=== PATIENT | male | born 1995 | race Caucasian/White ===

== ENCOUNTER 2018-07-03 14:33 | Inpatient (IN) | payer BC, OTHER ==
[~2018-07-03] VITALS: Ht 167.6 cm; Wt 80.2 kg
[2018-07-03] MEDS ORDERED: EFFE75CA2 PO (14:45)
[2018-07-03] MEDS ORDERED: VENL75CA47 PO (14:45)
[2018-07-03] MEDS ORDERED: RANI150T PO (14:45)
[2018-07-03] MEDS ORDERED: ADDE1TAB14 PO (14:45)
[2018-07-03 15:24] LABS: HEMATOCRIT 46.8 % (42.0-52.0); MEAN CORPUSCULAR HEMOGLOBIN 27.3 pg (27.0-33.0); MEAN CORPUSCULAR HGB CONC 32.1 g/dl (32.0-36.5); MEAN CORPUSCULAR VOLUME 85.1 fl (80.0-96.0); PLATELET COUNT, AUTOMATED 343 10^3/uL (150-450); WHITE BLOOD COUNT 9.3 10^3/uL (4.0-10.0)
[2018-07-03 15:40] LABS: AMPHETAMINES LEVEL URINE POSITIVE (NEGATIVE); BARBITURATES URINE NEGATIVE (NEGATIVE); BENZODIAZEPINES URINE NEGATIVE (NEGATIVE); CANNABINOIDS URINE POSITIVE (NEGATIVE); COCAINE METABOLITE URINE NEGATIVE (NEGATIVE); METHADONE URINE NEGATIVE (NEGATIVE); OPIATES URINE NEGATIVE (NEGATIVE); PHENCYCLIDINE URINE NEGATIVE (NEGATIVE)
[2018-07-03 16:17] LABS: ACETAMINOPHEN LEVEL < 2.0 UG/ML (10.0-30.0); ALBUMIN 3.7 GM/DL (3.2-5.2); ALT/SGPT 21 U/L (12-78); BILIRUBIN,DIRECT 0.1 MG/DL (0.0-0.2); BILIRUBIN,TOTAL 0.3 MG/DL (0.2-1.0); BLOOD UREA NITROGEN 11 MG/DL (7-18); CALCIUM LEVEL 8.1 MG/DL (8.5-10.1); CARBON DIOXIDE LEVEL 25 MEQ/L (21-32); CHLORIDE LEVEL 110 MEQ/L (98-107); CREATININE FOR GFR 0.86 MG/DL (0.70-1.30); ETHYL ALCOHOL (ETHANOL) 0.121 % (0.000-0.010); GLOMERULAR FILTRATION RATE > 60.0 (>60); GLUCOSE, FASTING 52 MG/DL (70-100); POTASSIUM SERUM 4.2 MEQ/L (3.5-5.1); SALICYLATE LEVEL 3.7 MG/DL (5.0-30.0); SODIUM LEVEL 144 MEQ/L (136-145); TOTAL PROTEIN 7.1 GM/DL (6.4-8.2)
[2018-07-03] MEDS ORDERED: SILD50TA PO (17:02)
[2018-07-03] MEDS ORDERED: AMPH1TAB2 PO (17:02)
[2018-07-03] MEDS ORDERED: LORazepam 2 MG TAB PO PRN (19:00)
[2018-07-03] MEDS ORDERED: ACETAMINOPHEN TAB 650MG DOSE (2X325MG) PO PRN (19:00)
[2018-07-03] MEDS ORDERED: MAALOX 30 ML SUSP *UDC PO PRN (19:00)
[2018-07-03] MEDS ORDERED: MOM 30ML SUSPENSION UDC PO PRN (19:00)
[2018-07-03] MEDS: THIAMINE 100 MG TAB PO SCH (19:44)
[2018-07-03 21:01] VITALS: BP 140/88
[2018-07-03] MEDS: traZODone 50 MG TAB PO PRN (22:19)
[2018-07-04 06:00] VITALS: BP 150/89
[2018-07-04] MEDS: MULTIVITAMINS/MINERALS THERAP 1 TAB PO SCH (09:22)
[2018-07-04] MEDS: NICOTINE 21MG/24HR 1 EA TRANSDERMAL TD SCH (09:22)
[2018-07-04] MEDS: FOLIC ACID 1 MG TAB PO SCH (09:22)
[2018-07-04] MEDS: THIAMINE 100 MG TAB PO SCH ×2 (09:22→21:07)
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
[2018-07-04] MEDS ORDERED: hydrOXYzine 50 MG TAB PO PRN (16:00)
[2018-07-04] MEDS: SERTRALINE HCL 50 MG TAB PO SCH (16:16)
[2018-07-04 16:56] VITALS: BP 133/88
[2018-07-04 18:08] VITALS: BP 133/88
[2018-07-04] MEDS: traZODone 50 MG TAB PO PRN (21:07)
[2018-07-04 22:00] VITALS: BP 133/88
[2018-07-05 06:30] VITALS: BP 140/84
[2018-07-05] MEDS ORDERED: VENLAFAXINE 37.5 MG TAB PO SCH (09:00)
[2018-07-05] MEDS: MULTIVITAMINS/MINERALS THERAP 1 TAB PO SCH (09:12)
[2018-07-05] MEDS: THIAMINE 100 MG TAB PO SCH ×2 (09:13→20:56)
[2018-07-05] MEDS: NICOTINE 21MG/24HR 1 EA TRANSDERMAL TD SCH (09:13)
[2018-07-05] MEDS: SERTRALINE HCL 50 MG TAB PO SCH (09:13)
[2018-07-05] MEDS: FOLIC ACID 1 MG TAB PO SCH (09:13)
--- NOTE | 2018-07-05 11:05 | MHIPNPDOC ---
[facility] Progress Note Progress Note DATE OF SERVICE: 07/05/18 Chief Complaint Patient presented himself to the ED for increasing depression History of Present Illness HISTORY OF THE PRESENT ILLNESS: Patient is a 23 -year-old , male, who according to ED report: "Patient arrived with police on a volunbtary basis. He has been noted to be crying, at times even sobbing uncontrollably, at times since arrival. During interview he avoided eye contact, was guarded & irritable. He described being distraught this morning due to the loss of his former s.o. & their 2 y/o daughter, as she terminated their relationship 2 weeks ago. He says that there is now an ongoing Family Court case to determine custody. Patient states that he has lost everything during this last 2 weeks & is now living back in his parents' home. He reports insomnia, hopelessness, poor appetite, depresse mood, frequent crying episodes & difficulty concentrating enough to work. Patient denied SI/HI on direct query, although his family suggetsed otherwise.Patient's father phoned ED with grievous concerns. He stated that patient has been struggling since the breakup, and today was found face down in the snow, sobbing. Father states that when he tried to intervene, patient became combative. He reportedly stated intent to go out into the hinds, while repeatedly begging his father to kill him in order to end his pain. Father expressed belief that patient has reached a point where he will indeed harm himself." VITAL SIGNS: See below. NEW TEST RESULTS: See below CURRENT MEDICATIONS: See below. MENTAL STATUS EXAMINATION: Patient is a 23-year old male, who is alert, cooperative, dressed in hospital clothes. Speech: Is normal rate, tone and volume. Spontaneous and fluent. Less circumstantial than yesterday Language skills are good Thought processes including: linear, coherent Thought content: depressive thoughts, cognitive distortions Abstract reasoning, and computation: good Description of associations: good Description of abnormal or psychotic thoughts: . Judgment: fair Insight: poor Orientation: x 3 Recent and remote memory: intact Attention span and concentration: good. Language: good. Fund of knowledge: average. Mood: anxious/depressed. Affect: congruent with mood. DIAGNOSES: 1. Major Depressive disorder, recurrent versus Bipolar disorder, unspecified 2. ZEENAT 3. ADHD by history ASSESSMENT: He says that he has been doing some journaling and that has helped. He says that now that he has his own clothes he will have a shower. He says that he feels a little bit more hopeful, his issue is sorting out his meds, he doesn't think he has been going to the right Doctors. Tried to explore some of his problems, his sense of being rejected, dressing in an extravagant way. He mentions that when he moved to the city he would work on and off a [employer], it granted him a lot of free partying. He never felt as if he was a woman but he felt it was easier for him to relate to other people when he was dressed as someone different than himself. He also did it to retaliate towards men that made fun of him. Once he became more confident as a man, he started to feel attracted towards women. discussed the possibility of a bipolar disorder, because he felt overtly confident, very energetic, he dressed in a different way before he took Adderall. He is agreable to take Abilify 2 mgs PO BID MANAGEMENT PLAN: Sertraline 50 mgs PO QAM Abilify 2 mgs PO BID Trazodone 50 mgs PO QHSP for insomnia Atarax 50 mgs PO Q4HP for anxiety/agitation TIME SPENT: 20 minutes. Vital Signs Vital Signs Date Time Temp Pulse Resp B/P (MAP) Pulse Ox O2 Delivery O2 Flow Rate FiO2 07/05/18 06:30 74 140/84 07/05/18 06:30 98.5 18 07/03/18 20:08 99 Room Air Current Medications Current Medications Acetaminophen (Tylenol Tab) 650 mg Q6HP PRN PO HEADACHE or DISCOMFORT; Start 07/03/18 at 19:00 Al Hydrox/Mg Hydrox/Simethicone (Mylanta) 30 ml Q4HP PRN PO HEARTBURN/INDIGESTION; Start 07/03/18 at 19:00 Folic Acid (Folic Acid) 1 mg DAILY PO Last administered on 07/05/18at 09:13; Start 07/04/18 at 09:00 Home Med (Med Rec Complete!) ASDIRECTED XX ; Start 07/03/18 at 17:15; Stop 07/03/18 at 17:15; Status DC Hydroxyzine HCl (Atarax) 50 mg Q4HP PRN PO ANXIETY/AGITATION Last administered on 07/04/18 16:16; Start 07/04/18 at 16:00 Lorazepam (Ativan) 2 mg ASDIRECTED PRN PO SEE PROTOCOL; Start 07/03/18 at 19:00 Magnesium Hydroxide (Milk Of Magnesia) 30 ml DAILYPRN PRN PO CONSTIPATION; Start 07/03/18 at 19:00 Multivitamins (Theragram-M) 1 tab DAILY PO Last administered on 07/05/18 09:12; Start 07/04/18 at 09:00 Nicotine (Nicoderm Cq 21mg) 1 patch DAILY TD Last administered on 07/05/18 09:13; Start 07/04/18 at 09:00 Sertraline HCl (Zoloft) 50 mg DAILY PO Last administered on 07/05/18 09:13; Start 07/04/18 at 09:00 Thiamine HCl (Thiamine HCl) 100 mg BID PO Last administered on 07/05/18 09:13; Start 07/03/18 at 19:00; Stop 07/06/18 at 18:59 Trazodone HCl (Desyrel) 50 mg QHSP PRN PO INSOMNIA Last administered on 07/04/18 21:07; Start 07/03/18 at 19:00 Venlafaxine HCl (Effexor) 37.5 mg DAILY PO ; Start 07/05/18 at 09:00; Status UNV Allergies Coded Allergies: Tetracycline (Verified Allergy, Unknown, 08/04/12) MONICA LAIRD MD Jul 05, 2018 11:04
[2018-07-05 18:05] VITALS: BP 138/88
[2018-07-05] MEDS: ARIPiprazole 2 MG TAB PO SCH (20:56)
[2018-07-05] MEDS: traZODone 50 MG TAB PO PRN (20:56)
[2018-07-05 22:00] VITALS: BP 138/88
[2018-07-06 06:00] VITALS: BP 135/82
[2018-07-06] MEDS: ARIPiprazole 2 MG TAB PO SCH ×2 (08:57→21:54)
[2018-07-06] MEDS: MULTIVITAMINS/MINERALS THERAP 1 TAB PO SCH (08:57)
[2018-07-06] MEDS: NICOTINE 21MG/24HR 1 EA TRANSDERMAL TD SCH (08:57)
[2018-07-06] MEDS: SERTRALINE HCL 50 MG TAB PO SCH (08:57)
[2018-07-06] MEDS: FOLIC ACID 1 MG TAB PO SCH (08:57)
[2018-07-06] MEDS: THIAMINE 100 MG TAB PO SCH (08:57)
--- NOTE | 2018-07-06 11:06 | MHIPNPDOC ---
[facility] Progress Note Progress Note DATE OF SERVICE: 07/06/18 HISTORY: Per Dr. Gonzalez: "Patient is a 23 -year-old , male, who according to ED report: "Patient arrived with police on a voluntary basis. He has been noted to be crying, at times even sobbing uncontrollably, at times since arrival. During interview he avoided eye contact, was guarded & irritable. He described being distraught this morning due to the loss of his former s.o. & their 2 y/o daughter, as she terminated their relationship 2 weeks ago. He says that there is now an ongoing Family Court case to determine custody. Patient states that he has lost everything during this last 2 weeks & is now living back in his parents' home. He reports insomnia, hopelessness, poor appetite, depressed mood, frequent crying episodes & difficulty concentrating enough to work. Patient denied SI/HI on direct query, although his family suggested otherwise.Patient's father phoned ED with grievous concerns. He stated that patient has been struggling since the breakup, and today was found face down in the snow, sobbing. Father states that when he tried to intervene, patient became combative. He reportedly stated intent to go out into the hinds, while repeatedly begging his father to kill him in order to end his pain. Father expressed belief that patient has reached a point where he will indeed harm himself." VITAL SIGNS: See below. NEW TEST RESULTS: See below CURRENT MEDICATIONS: See below. MENTAL STATUS EXAMINATION: Patient is a 23-year old male, who is alert, cooperative, dressed in own clothes. Speech: Is normal rate, tone and volume. Spontaneous and fluent. No longer circumstantial. Language skills are good Thought processes including: linear, coherent Thought content: depressive thoughts, cognitive distortions Abstract reasoning, and computation: good Description of associations: good Description of abnormal or psychotic thoughts:denies Judgment: fair Insight: fair Orientation: x 3 Recent and remote memory: intact Attention span and concentration: good. Language: good. Fund of knowledge: average. Mood: "better". Affect: less depressed and anxious DIAGNOSES: 1. Major Depressive disorder, recurrent versus Bipolar disorder, unspecified 2. ZEENAT 3. ADHD by history ASSESSMENT: States he's feeling better today although didn't sleep due to a loud agitation from another pt. States he's tolerating his medication and waiting to feel benefits from them. States he's attending groups which he's finding very helpful. Per Dr. Gonzalez yesterday "Tried to explore some of his problems, his sense of being rejected, dressing in an extravagant way. He mentions that when he moved to the city he would work on and off a [employer], it granted him a lot of free partying. He never felt as if he was a woman but he felt it was easier for him to relate to other people when he was dressed as someone different than himself. He also did it to retaliate towards men that made fun of him. Once he became more confident as a man, he started to feel attracted towards women." He denies SI/HI, hallucinations, delusions. Feels safe here. MANAGEMENT PLAN: Sertraline 50 mgs PO QAM Abilify 2 mgs PO BID Trazodone 50 mgs PO QHSP for insomnia Atarax 50 mgs PO Q4HP for anxiety/agitation TIME SPENT: 30 minutes. Vital Signs Vital Signs Date Time Temp Pulse Resp B/P (MAP) Pulse Ox O2 Delivery O2 Flow Rate FiO2 07/06/18 06:00 98.4 56 16 135/82 (99) 99 07/03/18 20:08 Room Air Current Medications Current Medications Acetaminophen (Tylenol Tab) 650 mg Q6HP PRN PO HEADACHE or DISCOMFORT; Start 07/03/18 at 19:00 Al Hydrox/Mg Hydrox/Simethicone (Mylanta) 30 ml Q4HP PRN PO HEARTBURN/INDIGESTION; Start 07/03/18 at 19:00 Aripiprazole (AbiLIFY) 2 mg BID PO Last administered on 07/06/18at 08:57; Start 07/05/18 at 21:00 Folic Acid (Folic Acid) 1 mg DAILY PO Last administered on 07/06/18at 08:57; Start 07/04/18 at 09:00 Home Med (Med Rec Complete!) ASDIRECTED XX ; Start 07/03/18 at 17:15; Stop 07/03/18 at 17:15; Status DC Hydroxyzine HCl (Atarax) 50 mg Q4HP PRN PO ANXIETY/AGITATION Last administered on 07/04/18at 16:16; Start 07/04/18 at 16:00 Lorazepam (Ativan) 2 mg ASDIRECTED PRN PO SEE PROTOCOL; Start 07/03/18 at 19:00 Magnesium Hydroxide (Milk Of Magnesia) 30 ml DAILYPRN PRN PO CONSTIPATION; Start 07/03/18 at 19:00 Multivitamins (Theragram-M) 1 tab DAILY PO Last administered on 07/06/18 08:57; Start 07/04/18 at 09:00 Nicotine (Nicoderm Cq 21mg) 1 patch DAILY TD Last administered on 07/05/18 09:13; Start 07/04/18 at 09:00 Sertraline HCl (Zoloft) 50 mg DAILY PO Last administered on 07/06/18 08:57; Start 07/04/18 at 09:00 Thiamine HCl (Thiamine HCl) 100 mg BID PO Last administered on 07/06/18 08:57; Start 07/03/18 at 19:00; Stop 07/06/18 at 18:59 Trazodone HCl (Desyrel) 50 mg QHSP PRN PO INSOMNIA Last administered on 07/05/18 20:56; Start 07/03/18 at 19:00 Venlafaxine HCl (Effexor) 37.5 mg DAILY PO ; Start 07/05/18 at 09:00; Status UNV Allergies Coded Allergies: Tetracycline (Verified Allergy, Unknown, 08/04/12) BLAYNE LUKE DO Jul 06, 2018 11:06 am
--- NOTE | 2018-07-06 13:32 | HPE ---
DATE OF ADMISSION: 07/03/2018 HISTORY OF THE PRESENT ILLNESS: Please refer to psychiatric history and evaluation for further details on this admission. This examination and history performed is intended for medical issues which may need treatment, follow-up or consult on this 23-year-old male. ALLERGIES: 1. TETRACYCLINE. PRIMARY CARE PROVIDER: KOBE Moran SOCIAL HISTORY: He is single. EtOH he has had none for two months until the night he came in. Smokes one pack of cigarettes per day. Recreational drug use marijuana. PAST MEDICAL HISTORY: He had a right eye fenestration for a pseudotumor. Attention deficit hyperactivity disorder (ADHD). Gastroesophageal reflux disease (GERD). PAST SURGICAL HISTORY: Gastric bypass. Right fenestration. FAMILY HISTORY: Noncontributory. HOME MEDICATIONS: - Adderall 15 mg by mouth daily - ranitidine 150 mg by mouth daily as needed for heartburn - Viagra 50 mg by mouth as needed erectile dysfunction - venlafaxine 75 mg by mouth at bedtime LABORATORY STUDIES: WBC was 9.3, hemoglobin 15, hematocrit 46.8, platelets 343, sodium 144, potassium 4.2, chloride 111, CO2 25, anion gap 9, BUN 11, creatinine 0.86, calcium 8.1, blood sugar was low at 52. Patient is nondiabetic. Improved after eating to 119. Toxicology EtOH was 0.121. Urine was positive cannabinoids. Positive for amphetamines. REVIEW OF SYSTEMS: 10 systems review was done and was unremarkable. The patient had no specific complaints. PHYSICAL EXAMINATION: 23-year-old cooperative male in no acute distress. Height 66 inches, weight 80.2 kg, BMI 28.5. Patient is alert and oriented times three. Pupils equal and react to light. Extraocular muscles intact. Cornea and sclerae are clear. Conjunctivae are normal. No facial asymmetry. Pharynx, tongue and gums are pink and moist. Tongue is midline. Neck is supple without lymphadenopathy. No thyromegaly. No goiter. Carotids are 2+ without bruit. Chest clear to auscultation without wheeze or retraction. Heart is regular. Abdomen is benign. Bowel sounds are positive. /rectal not done. Extremities show equal strengt. Full range of motion. No cyanosis, clubbing or edema. Peripheral pulses are equal and palpable bilaterally. Skin is warm and dry. IMPRESSION/PLAN: 1. Psychiatric plan per psychiatry. 2. History of gastroesophageal reflux disease (GERD), stable. 3. History of ADHD. 4. Smoking cessation. Nicotine patch available.
[2018-07-06 18:00] VITALS: BP 139/72
[2018-07-06] MEDS: traZODone 50 MG TAB PO PRN (21:54)
[2018-07-07 06:39] VITALS: BP 138/82
--- NOTE | 2018-07-07 08:55 | MHIPNPDOC ---
[facility] Progress Note Progress Note DATE OF SERVICE: 07/07/18 HISTORY: Per Dr. Gonzalez: "Patient is a 23 -year-old , male, who according to ED report: "Patient arrived with police on a voluntary basis. He has been noted to be crying, at times even sobbing uncontrollably, at times since arrival. During interview he avoided eye contact, was guarded & irritable. He described being distraught this morning due to the loss of his former s.o. & their 2 y/o daughter, as she terminated their relationship 2 weeks ago. He says that there is now an ongoing Family Court case to determine custody. Patient states that he has lost everything during this last 2 weeks & is now living back in his parents' home. He reports insomnia, hopelessness, poor appetite, depressed mood, frequent crying episodes & difficulty concentrating enough to work. Patient denied SI/HI on direct query, although his family suggested otherwise.Patient's father phoned ED with grievous concerns. He stated that patient has been struggling since the breakup, and today was found face down in the snow, sobbing. Father states that when he tried to intervene, patient became combative. He reportedly stated intent to go out into the hinds, while repeatedly begging his father to kill him in order to end his pain. Father expressed belief that patient has reached a point where he will indeed harm himself." VITAL SIGNS: See below. NEW TEST RESULTS: See below CURRENT MEDICATIONS: See below. MENTAL STATUS EXAMINATION: Patient is a 23-year old male, who is alert, cooperative, dressed in own clothes. Speech: Is normal rate, tone and volume. Spontaneous and fluent. No longer circumstantial. Language skills are good Thought processes including: linear, logical, coherent Thought content: less depressive thoughts and cognitive distortions Abstract reasoning, and computation: good Description of associations: good Description of abnormal or psychotic thoughts:denies Judgment: fair Insight: fair Orientation: x 3 Recent and remote memory: intact Attention span and concentration: good. Language: good. Fund of knowledge: average. Mood: "better". Affect: less depressed and anxious DIAGNOSES: 1. Major Depressive disorder, recurrent versus Bipolar disorder, unspecified 2. ZEENAT 3. ADHD by history ASSESSMENT: States he's feeling better today and slept well. States he's tolerating his medication and feels they're beneficial as his mood is "leveling out." Denies manic symptoms and [place] the city [place] for free and self discovery although during that time preferred to dress as a male than female. States he is bisexual but currently more attracted to women. States he's attending groups which he's finding very helpful. He denies SI/HI, hallucinations, delusions. Feels safe here. MANAGEMENT PLAN: Sertraline 50 mgs PO QAM Abilify 2 mgs PO BID Trazodone 50 mgs PO QHSP for insomnia Atarax 50 mgs PO Q4HP for anxiety/agitation TIME SPENT: 30 minutes. Vital Signs Vital Signs Date Time Temp Pulse Resp B/P (MAP) Pulse Ox O2 Delivery O2 Flow Rate FiO2 07/07/18 06:39 97.2 64 16 138/82 (100) 07/06/18 06:00 99 07/03/18 20:08 Room Air Current Medications Current Medications Acetaminophen (Tylenol Tab) 650 mg Q6HP PRN PO HEADACHE or DISCOMFORT; Start 07/03/18 at 19:00 Al Hydrox/Mg Hydrox/Simethicone (Mylanta) 30 ml Q4HP PRN PO HEARTBURN/INDIGESTION; Start 07/03/18 at 19:00 Aripiprazole (AbiLIFY) 2 mg BID PO Last administered on 07/06/18at 21:54; Start 07/05/18 at 21:00 Folic Acid (Folic Acid) 1 mg DAILY PO Last administered on 07/06/18at 08:57; Start 07/04/18 at 09:00 Home Med (Med Rec Complete!) ASDIRECTED XX ; Start 07/03/18 at 17:15; Stop 07/03/18 at 17:15; Status DC Hydroxyzine HCl (Atarax) 50 mg Q4HP PRN PO ANXIETY/AGITATION Last administered on 07/04/18at 16:16; Start 07/04/18 at 16:00 Lorazepam (Ativan) 2 mg ASDIRECTED PRN PO SEE PROTOCOL; Start 07/03/18 at 19:00 Magnesium Hydroxide (Milk Of Magnesia) 30 ml DAILYPRN PRN PO CONSTIPATION; Start 07/03/18 at 19:00 Multivitamins (Theragram-M) 1 tab DAILY PO Last administered on 07/06/18 08:57; Start 07/04/18 at 09:00 Nicotine (Nicoderm Cq 21mg) 1 patch DAILY TD Last administered on 07/05/18 09:13; Start 07/04/18 at 09:00 Sertraline HCl (Zoloft) 50 mg DAILY PO Last administered on 07/06/18 08:57; Start 07/04/18 at 09:00 Thiamine HCl (Thiamine HCl) 100 mg BID PO Last administered on 07/06/18 08:57; Start 07/03/18 at 19:00; Stop 07/06/18 at 18:59; Status DC Trazodone HCl (Desyrel) 50 mg QHSP PRN PO INSOMNIA Last administered on 07/06/18 21:54; Start 07/03/18 at 19:00 Venlafaxine HCl (Effexor) 37.5 mg DAILY PO ; Start 07/05/18 at 09:00; Status UNV Allergies Coded Allergies: Tetracycline (Verified Allergy, Unknown, 08/04/12) BLAYNE LUKE DO Jul 07, 2018 8:55 am
[2018-07-07] MEDS: NICOTINE 21MG/24HR 1 EA TRANSDERMAL TD SCH (08:57)
[2018-07-07] MEDS: SERTRALINE HCL 50 MG TAB PO SCH (08:58)
[2018-07-07] MEDS: FOLIC ACID 1 MG TAB PO SCH (08:58)
[2018-07-07] MEDS: ARIPiprazole 2 MG TAB PO SCH ×2 (08:58→20:19)
[2018-07-07] MEDS: MULTIVITAMINS/MINERALS THERAP 1 TAB PO SCH (08:58)
[2018-07-07 18:14] VITALS: BP 142/87
[2018-07-07] MEDS: traZODone 50 MG TAB PO PRN (20:19)
[2018-07-08 06:17] VITALS: BP 147/79
--- NOTE | 2018-07-08 08:53 | MHDSPDOC ---
[facility] Discharge Summary Discharge Summary DATE OF ADMISSION: Jul 03, 2018 at 6:53 pm DATE OF DISCHARGE: Jul 08, 2018 DISCHARGE DIAGNOSES: 1. Major Depressive disorder, recurrent versus Bipolar disorder, unspecified 2. ZEENAT 3. ADHD by history REASON FOR ADMISSION: Per Dr. Gonzalez: "Patient is a 23 -year-old , male, who according to ED report: "Patient arrived with police on a voluntary basis. He has been noted to be crying, at times even sobbing uncontrollably, at times since arrival. During interview he avoided eye contact, was guarded & irritable. He described being distraught this morning due to the loss of his former s.o. & their 2 y/o daughter, as she terminated their relationship 2 weeks ago. He says that there is now an ongoing Family Court case to determine custody. Patient states that he has lost everything during this last 2 weeks & is now living back in his parents' home. He reports insomnia, hopelessness, poor appetite, depressed mood, frequent crying episodes & difficulty concentrating enough to work. Patient denied SI/HI on direct query, although his family suggested otherwise.Patient's father phoned ED with grievous concerns. He stated that patient has been struggling since the breakup, and today was found face down in the snow, sobbing. Father states that when he tried to intervene, patient became combative. He reportedly stated intent to go out into the hinds, while repeatedly begging his father to kill him in order to end his pain. Father e xpressed belief that patient has reached a point where he will indeed harm himself." CONSULTANTS INVOLVED: none TREATMENT AND PROGRESS ON THE UNIT : Pt was admitted to [facility], seen for psychiatric assessment and started on Sertraline 50 mgs PO QAM, Abilify 2 mgs PO BID. He was provided Atarax 50 mgs q6hr prn anxiety/agitation and trazodone 50mg qhs prn insomnia. Pt found his medications beneficial and tolerated them well. He attended groups daily during his stay. His symptoms improved with treatment. On day of discharge he denied depression, anxiety, insomnia, SI/HI, hallucinations, delusions. He was discharged home after family meeting with his father with follow-up at [facility]3]. He felt safe for discharge. DISCHARGE ASSESSMENT: States he's feeling good today and slept well. States his ex-girlfriend, the mother of his son, scheduled and emergency custody hearing for sole custody to take advantage of him being here that will be tomorrow. S arvin he feels safe to go home and really wants to make it to the custody hearing as his son is very important to him. States he's tolerating his medication and feels they're beneficial. States he's attending groups which he's finding very helpful. He denies depression, anxiety, insomnia, SI/HI, hallucinations, delusions. Feels safe to be discharged home with his father. He is goal oriented. MENTAL STATUS EXAMINATION ON DISCHARGE: Patient is a 23-year old male, who is alert, cooperative, dressed in own clothes. Speech: Is normal rate, tone and volume. Spontaneous and fluent. Language skills are good Thought processes including: linear, logical, coherent Thought content: denies SI/HI, goal oriented to attend custody hearing tomorrow Abstract reasoning, and computation: good Description of associations: good Description of abnormal or psychotic thoughts:denies Judgment:good Insight: good Orientation: x 3 Recent and remote memory: intact Attention span and concentration: good. Language: good. Fund of knowledge: average. Mood: "good". Affect:euthymic, full MEDICATIONS ON DISCHARGE: Sertraline 50 mgs PO QAM Abilify 2 mgs PO BID Trazodone 50 mgs PO QHSP for insomnia Atarax 50 mgs PO Q4HP for anxiety/agitation PLAN/FOLLOWUP ARRANGEMENTS: D/c home with follow-up at [facility]. The amount of time spent in the coordination of care for this patient was approximately 30 minutes. Vital Signs/I&Os Vital Signs Date Time Temp Pulse Resp B/P (MAP) Pulse Ox O2 Delivery O2 Flow Rate FiO2 07/08/18 06:17 97.3 57 18 147/79 (101) 07/06/18 06:00 99 07/03/18 20:08 Room Air Medications Scheduled Amphetamine/Dextroamphetamine (Amphetamine/Dextroampheta 15 mg) 1 Tab Tab, 15 MG PO BID, (Reported) Venlafaxine HCl (Venlafaxine HCl ER) 75 Mg Capcr, 75 MG PO QHS, (Reported) Scheduled PRN Ranitidine HCl (Ranitidine HCl) 150 Mg Tab, 150 MG PO DAILY PRN for HEARTBURN, (Reported) Sildenafil Citrate (Viagra) 50 Mg Tab, 50 MG PO DAILY PRN for ERECTILE DYSFUNCTION, (Reported) Allergies Coded Allergies: Tetracycline (Verified Allergy, Unknown, 08/04/12) BLAYNE LUKE DO Jul 08, 2018 8:53 am
[2018-07-08] MEDS ORDERED: HYDRO50TAB PO (08:55)
[2018-07-08] MEDS ORDERED: TRAZO50TA PO (08:55)
[2018-07-08] MEDS ORDERED: SERT50TA PO (08:55)
[2018-07-08] MEDS ORDERED: ARIP2TAB PO (08:55)
[2018-07-08] MEDS: SERTRALINE HCL 50 MG TAB PO SCH (08:58)
[2018-07-08] MEDS: MULTIVITAMINS/MINERALS THERAP 1 TAB PO SCH (08:58)
[2018-07-08] MEDS: ARIPiprazole 2 MG TAB PO SCH (08:58)
[2018-07-08] MEDS: FOLIC ACID 1 MG TAB PO SCH (08:58)
[2018-07-08] MEDS: NICOTINE 21MG/24HR 1 EA TRANSDERMAL TD SCH (08:59)
== END 2018-07-08 13:20 | disposition home or self-care (01) | DRG 885 ==
LOC: M ED 14:33 → M ED INP 18:53 → M PSY 20:18
PROVIDERS: ADMIT Psychiatry & Neurology Psychiatry; ATTEND Psychiatry & Neurology Psychiatry
DX: F33.9 Major depressive disorder, recurrent, unspecified (principal); F41.1 Generalized anxiety disorder; F31.9 Bipolar disorder, unspecified; F90.9 Attention-deficit hyperactivity disorder, unspecified type; K21.9 Gastro-esophageal reflux disease without esophagitis; Z79.899 Other long term (current) drug therapy; F17.210 Nicotine dependence, cigarettes, uncomplicated; F12.90 Cannabis use, unspecified, uncomplicated

== ENCOUNTER → 2023-07-14 | Outpatient (CLI) | payer OTHER ==
[~2023-07-14] MED LIST: ADDE1TAB14 PO; AMPH1TAB2 PO; ARIP1TAB4 PO; EFFE75CA2 PO; HYDR1TAB33 PO; RANI150T PO; SERT-141 PO; SILD50TA PO; TRAZ1TAB10 PO; VENL75CA47 PO
[2023-07-14 13:17] LABS: BASO # 0.1 10^3/uL (0.0-0.2); BASO % 0.5 % (0.0-1.0); EOS # 0.2 10^3/uL (0.0-0.5); EOS % 2.1 % (0.0-3.0); HEMATOCRIT 44.6 % (42.0-52.0); LYMPH # 2.1 10^3/uL (1.5-5.0); LYMPH % 22.7 % (24.0-44.0); MEAN CORPUSCULAR HEMOGLOBIN 25.9 pg (27.0-33.0); MEAN CORPUSCULAR HGB CONC 31.4 g/dl (32.0-36.5); MEAN CORPUSCULAR VOLUME 82.6 fl (80.0-96.0); MONO # 0.6 10^3/uL (0.0-0.8); MONO % 6.6 % (2.0-8.0); NEUTROPHILS # 6.3 10^3/uL (1.5-8.5); NEUTROPHILS % 67.7 % (36.0-66.0); PLATELET COUNT, AUTOMATED 248 10^3/uL (150-450); WHITE BLOOD COUNT 9.3 10^3/uL (4.0-10.0)
[2023-07-14 13:34] LABS: HEMOGLOBIN A1c 5.4 % (4.0-6.0)
[2023-07-14 13:45] LABS: IRON (FE) 77 UG/DL (65-175); PERCENT SATURATION 19.3 % (19.7-50.0); TOTAL IRON BINDING CAPACITY 399 UG/DL (250-425)
[2023-07-14 13:46] LABS: ALKALINE PHOSPHATASE 46 U/L (46-116); ALT/SGPT 27 U/L (7.0-40); AST/SGOT 19 U/L (<34); BILIRUBIN,TOTAL 0.8 MG/DL (0.3-1.2); BLOOD UREA NITROGEN 13 MG/DL (9-23); CALCIUM LEVEL 8.4 MG/DL (8.5-10.1); CARBON DIOXIDE LEVEL 30 MMOL/L (20-31); CHLORIDE LEVEL 106 MMOL/L (98-107); CHOLESTEROL LEVEL 136 MG/DL (<200); CHOLESTEROL RISK RATIO 2.62 (<5); CREATININE FOR GFR 0.85 MG/DL (0.70-1.30); GLOMERULAR FILTRATION RATE > 60.0 (>60); GLUCOSE, FASTING 90 MG/DL (60-100); HDL CHOLESTEROL 51.9 MG/DL (>40); LDL CHOLESTEROL 72.1 MG/DL (<100); MAGNESIUM LEVEL 1.9 MG/DL (1.8-2.4); NON-HDL-C 84.1 MG/DL; POTASSIUM SERUM 4.2 MMOL/L (3.5-5.1); SODIUM LEVEL 140 MMOL/L (136-145); TOTAL PROTEIN 6.8 G/DL (5.7-8.2); TRIGLYCERIDES LEVEL 60 MG/DL (<150)
[2023-07-14 13:49] LABS: THYROID STIMULATING HORMONE 3.311 uIU/ML (0.55-4.78); TOTAL 25(OH) VITAMIN D 19.3 NG/ML (20.0-100.0)
[2023-07-14 13:50] LABS: THYROID PEROXIDASE ANTIBODY 43 U/ML (<60.0)
[2023-07-14 13:51] LABS: FOLATE 20.9 NG/ML (>5.4)
[2023-07-14 13:53] LABS: VITAMIN B12 LEVEL 892 PG/ML (211-911)
== END ==
LOC: M WUC 09:15
PROVIDERS: ATTEND Physician Assistant
DX: Z98.84 Bariatric surgery status (principal); Z13.29 Encounter for screening for other suspected endocrine disorder

== ENCOUNTER 2024-05-12 08:11 | Outpatient (CLI) | payer OTHER ==
[~2024-05-12] VITALS: Ht 167.6 cm; Wt 81.8 kg
[2024-05-12 08:20] VITALS: BP 141/81; O2SAT 97
[2024-05-12] MEDS: IRON SUCROSE 500 MG in NS 250 ML OVER 4 HRS IV ONE (08:56)
[2024-05-12] MEDS ORDERED: OMEP10CASR PO (09:01)
[2024-05-12] MEDS ORDERED: FLUO-290 PO (09:01)
[2024-05-12] MEDS ORDERED: BUPR10TASR PO (09:01)
[2024-05-12 10:00] VITALS: BP 139/73; O2SAT 98
[2024-05-12 11:00] VITALS: BP 141/77; O2SAT 98
[2024-05-12 12:00] VITALS: BP 133/84; O2SAT 98
== END 2024-05-12 13:15 ==
LOC: M INFU 08:11
PROVIDERS: ATTEND Family Medicine
DX: D50.9 Iron deficiency anemia, unspecified (principal); Z88.8 Allergy status to other drugs, medicaments and biological substances
CPT/HCPCS: 96365; 96366; J1756

== ENCOUNTER → 2025-01-11 | Outpatient (CLI) | payer OTHER ==
[~2025-01-11] MED LIST changes: +BUPR10TASR PO; +FLUO-290 PO; +OMEP10CASR PO
[2025-01-11 12:48] LABS: ALT/SGPT 27 U/L (7.0-40); AST/SGOT 22 U/L (<34); BASO # 0.0 10^3/uL (0.0-0.2); BASO % 0.4 % (0.0-1.0); CALCIUM LEVEL 8.8 MG/DL (8.5-10.1); CARBON DIOXIDE LEVEL 31 MMOL/L (20-31); CHLORIDE LEVEL 106 MMOL/L (98-107); CREATININE FOR GFR 0.84 MG/DL (0.70-1.30); EOS # 0.2 10^3/uL (0.0-0.5); EOS % 1.7 % (0.0-3.0); GLOMERULAR FILTRATION RATE > 90.0 (>60); LYMPH # 2.3 10^3/uL (1.5-5.0); LYMPH % 21.0 % (24.0-44.0); MONO # 0.8 10^3/uL (0.0-0.8); MONO % 7.4 % (2.0-8.0); NEUTROPHILS # 7.5 10^3/uL (1.5-8.5); NEUTROPHILS % 69.2 % (36.0-66.0); PLATELET COUNT, AUTOMATED 272 10^3/uL (150-450); POTASSIUM SERUM 4.2 MMOL/L (3.5-5.1); SODIUM LEVEL 144 MMOL/L (136-145)
[2025-01-11 13:21] LABS: HIV 1&2 SCREEN NEGATIVE (NEGATIVE)
[2025-01-11 13:28] LABS: HEPATITIS C VIRUS ABY INDEX 0.02 INDEX (<0.8)
[2025-01-11 14:05] LABS: GC DNA AMPLIFICATION NEGATIVE (NEGATIVE)
[2025-01-13 12:06] LABS: HSV 1 IGG TYPE SPECIFIC < 0.90 index (<0.90); HSV 2 IGG TYPE SPECIFIC < 0.90 index (<0.90)
== END ==
LOC: M WUC 08:44
PROVIDERS: ATTEND Physician Assistant
DX: Z11.3 Encounter for screening for infections with a predominantly sexual mode of transmission (principal)